=== PATIENT | male | born 1960 | race Caucasian/White ===

== ENCOUNTER 2016-12-13 15:06 | Emergency (ER) | payer OTHER ==
[~2016-12-13 15:06] MED LIST: PANTOPRAZOLE SO40 MG PO; PROBIOTIC1 EAC5
[2017-01-15] MEDS ORDERED: ACIDOPHILUS1 EAC2 PO (16:58)
[2017-01-15] MEDS ORDERED: PROTONIX PO (16:58)
== END 2016-12-13 15:10 | disposition home or self-care (01) ==
LOC: CFTX 15:06
DX: R33.9 Retention of urine, unspecified (principal); Z98.890 Other specified postprocedural states; Z87.891 Personal history of nicotine dependence; Z88.1 Allergy status to other antibiotic agents; Z88.5 Allergy status to narcotic agent
CPT/HCPCS: 51702; 99284

== ENCOUNTER 2016-12-19 08:22 | Emergency (ER) | payer OTHER ==
[2017-01-15] MEDS ORDERED: ACIDOPHILUS1 EAC2 PO (16:58)
[2017-01-15] MEDS ORDERED: PROTONIX PO (16:58)
== END 2016-12-19 08:25 | disposition home or self-care (01) ==
LOC: CED 08:22
DX: Z46.6 Encounter for fitting and adjustment of urinary device (principal); R33.8 Other retention of urine; K59.00 Constipation, unspecified; J44.9 Chronic obstructive pulmonary disease, unspecified; Z88.5 Allergy status to narcotic agent; Z88.1 Allergy status to other antibiotic agents
CPT/HCPCS: 99282

== ENCOUNTER 2016-12-20 19:21 | Emergency (ER) | payer OTHER ==
[2017-01-15] MEDS ORDERED: ACIDOPHILUS1 EAC2 PO (16:58)
[2017-01-15] MEDS ORDERED: PROTONIX PO (16:58)
== END 2016-12-20 19:25 | disposition home or self-care (01) ==
LOC: CED 19:21
DX: R43.8 Other disturbances of smell and taste (principal); Z88.5 Allergy status to narcotic agent; Z88.1 Allergy status to other antibiotic agents
CPT/HCPCS: 99282

== ENCOUNTER → 2017-01-21 | Day surgery (SDC) | payer OTHER ==
[~2017-01-21] MED LIST changes: +ACIDOPHILUS1 EAC2 PO; +PROTONIX PO
--- NOTE | ~2017-01-21 | OR ---
Unit #: [id number] #: [id number] Patient: CONSTANTINO FOY [id number] [address] [address] [id number] O MR#: [id number] NAME: CONSTANTINO FOY ROOM: Date of Procedure: 01/21/2017 Admission Date: 01/21/2017 Surgeon: Robby Najera M.D. : 1960 Attending Physician: Robby Najera M.D. Referring Physician: Robby Najera M.D. Primary Care Physician: Perez Bran Aprn OPERATIVE REPORT PROCEDURE PERFORMED Colonoscopy to cecum. INDICATIONS FOR PROCEDURE The patient with history of large polyp with high-grade dysplasia removed recently with piecemeal dissection and undergoing colonoscopy to ensure complete polypectomy. MEDICATIONS Monitored anesthesia. POSTOPERATIVE FINDINGS 1. Colonoscopy completed to cecum with good prep. 2. No remnant or recurrent polyp was seen. 3. Internal hemorrhoids. PLAN Given the history, I recommend repeat colonoscopy in 3 years. DESCRIPTION OF PROCEDURE The patient was explained of the procedure, risks, and benefits along with risks and benefits of anesthesia. He was brought to the endoscopy room. Propofol anesthesia was given. Rectal exam was done, which was normal. Colonoscope was lubricated, passed up the rectum, advanced under direct vision all way to the cecum. Cecum was identified by ileocecal valve and appendiceal orifice. Previous polypectomy site was identified. No polyps, masses, or remnant polyps were seen. I retroflexed in the rectum. Internal hemorrhoids were seen. Scope was gently pulled out. He tolerated it well. Dictated by... Joey Oconnell/rm TD: 02/06/2017 00:07 JOB #: [id number] Unit #: [id number] #: [id number] Patient: CONSTANTINO FOY OPERATIVE REPORT Page 1 of 1 X Robby Najera MD PROCEDURE OPERATIVE NOTE
== END | disposition home or self-care (01) ==
LOC: COPS 10:02
PROVIDERS: Internal Medicine
PROC: 0DJD8ZZ Inspection of Lower Intestinal Tract, Via Natural or Artificial Opening Endoscopic (ICD-10-PCS; principal; 2017-01-21 12:00)
DX: Z48.815 Encounter for surgical aftercare following surgery on the digestive system (principal); Z86.010 Personal history of colon polyps; K64.8 Other hemorrhoids; Z88.8 Allergy status to other drugs, medicaments and biological substances; K29.70 Gastritis, unspecified, without bleeding; J43.9 Emphysema, unspecified
CPT/HCPCS: J2250

== ENCOUNTER 2017-05-12 23:34 | Emergency (ER) | payer OTHER ==
--- NOTE | ~2017-05-12 | CT2 ---
[facility] A Service of [facility] RADIOLOGY TEXT RESULTS PATIENT: CONSTANTINO FOY LOCATION: [facility] : 62 UNIT #: [id number] AGE: [address]: Sae Dorado SEX: M ORDER DR: [id number] [facility] [address] [place], [place] [address] [id number] E MR#: [id number] Acc #: [id number] NAME: CONSTANTINO FOY : 1960 SEX: M STUDY DATE/TIME: 05/13/2017 1:58 UNIT: AC ROOM: STUDY DESCRIPTION: CT Abd and Pelv W Cont Attending Physician: Sae Dorado P.A.-C. Ordering Physician: Sae Dorado P.A.-C. Primary Care Physician: [facility] MEDICAL IMAGING REPORT This report is preliminary unless electronic signature is present EXAM CT abdomen and pelvis with IV contrast. DATE: 08/09/2016 HISTORY 57-year-old male complains of generalized abdominal pain with nausea since yesterday. Weakness. COMPARISON CT abdomen and pelvis 08/09/2016. PROCEDURE 5 mL axial images from lung bases through lesser trochanters after intravenous contrast administration. Enteric contrast not administered. Sagittal and coronal reformatted images were obtained. This CT exam was performed with one or more of the following radiation dose reduction techniques: automatic exposure control, adjustment of mA and/or kV according to patient size, and iterative reconstruction. FINDINGS ABDOMEN FINDINGS: Large bulla within the right middle lobe again noted. No acute basilar airspace disease is identified. Mild emphysema. The liver, gallbladder, spleen, pancreas, adrenals and kidneys are within normal limits. Limited evaluation bowel without IV contrast. No evidence of high-grade large or small bowel obstruction. No free air free fluid. Normal appendix. PELVIS FINDINGS: Urinary bladder, prostate and rectum are normal. No acute pelvic free fluid or adenopathy. [facility] A Service of [facility] / [facility] RADIOLOGY TEXT RESULTS PATIENT: CONSTANTINO FOY LOCATION: [facility] : 62 UNIT #: [id number] AGE: [address]: Sae Dorado PAC SEX: M ORDER DR: IMPRESSION 1. No acute findings. Normal appendix. 2. Large right middle lobe bulla. Mild emphysema. Dictated by... Bri Dixon M.D. THIS IS AN ELECTRONICALLY VERIFIED REPORT Bri Dixon M.D. at 05/13/2017 9:55 PM RUBA/cassy TD: 05/13/2017 05:30 JOB #: [id number] MEDICAL IMAGING REPORT Page 1 of 1 COPY
[2017-05-13 01:08] LABS: ALBUMIN SERUM 4.4 g/dL (3.5-5.0); ALKALINE PHOSPHATASE 71 U/L (32-92); ALT (SGPT) 18 U/L (10-40); AST (SGOT) 25 U/L (10-42); BILIRUBIN, DIRECT 0.2 mg/dL (0.0-0.2); BILIRUBIN,TOTAL 0.2 mg/dL (0.2-2.0); BLOOD UREA NITROGEN 16 mg/dL (9-23); CALCIUM SERUM 9.3 mg/dL (8.4-10.2); CARBON DIOXIDE 28 mmol/L (22-31); CHLORIDE 105 mmol/L (100-111); CREATININE SERUM 1.3 mg/dL (0.6-1.4); GLUCOSE FASTING 174 mg/dL (70-110); LIPASE 17 U/L (22-51); POTASSIUM 4.2 mmol/L (3.5-5.1); PROTEIN TOTAL SERUM 7.7 g/dL (6.0-8.3); SODIUM 140 mmol/L (135-145)
[2017-05-13 01:09] LABS: ALCOHOL BLOOD <5 mg/dL (0)
[2017-05-13 01:13] LABS: BASOPHIL# 0.1 X10e3 (0-0.3); BASOPHIL% 0.5 % (0-2.5); EOSINOPHIL# 0.3 X10e3 (0-0.7); EOSINOPHIL% 1.4 % (0.0-7.0); HEMATOCRIT 44.6 % (38.0-50.0); HEMOGLOBIN 14.4 gm/dL (13.0-16.0); LYMPHOCYTE# 1.6 X10e3 (1.0-3.5); LYMPHOCYTE% 7.8 % (17.0-45.0); MEAN CELL VOLUME 86.5 FL (83-96); MEAN CORPUSCULAR HGB CONC 32.3 g/dL (30-36); MEAN PLATELET VOLUME 7.9 FL (6.5-11.5); MONOCYTE# 1.7 X10e3 (0-1.0); MONOCYTE% 8.2 % (3.0-12.0); NEUTROPHIL# 16.7 X10e3 (1.5-7.1); NEUTROPHIL% 82.1 % (40-75); PLATELET COUNT 263 X10e3 (140-420); RED BLOOD COUNT 5.16 X10e (3.90-5.60); WHITE BLOOD COUNT 20.3 X10e3 (4.0-10.5)
[2017-05-13 01:14] LABS: DIFF IND YES
[2017-05-13 01:45] LABS: PLATELET ESTIMATE NORMAL (NORMAL); RBC NORMAL YES
[2017-05-13 04:38] LABS: URINE SOURCE CLEAN CATCH
[2017-05-13 04:45] LABS: URINE APPEARANCE CLEAR; URINE BILIRUBIN NEG (NEG); URINE BLOOD NEG (NEG); URINE COLOR YELLOW; URINE GLUCOSE NEG (NEG); URINE KETONE NEG (NEG); URINE LEUKOCYTE ESTERASE NEG (NEG); URINE NITRATE NEG (NEG); URINE PH 7.5 (5-8); URINE PROTEIN NEG (NEG); URINE SPECIFIC GRAVITY 1.046 (1.003-1.035); URINE UROBILINOGEN 0.2 MG/DL (NEG)
[2017-05-13 04:47] LABS: CULTURE INDICATED? NO
== END 2017-05-13 04:36 | disposition home or self-care (01) ==
LOC: CED 23:34
PROVIDERS: Student in an Organized Health Care Education/Training Program
DX: R10.84 Generalized abdominal pain (principal); R11.2 Nausea with vomiting, unspecified; F17.210 Nicotine dependence, cigarettes, uncomplicated; Z79.899 Other long term (current) drug therapy; Z88.5 Allergy status to narcotic agent; Z88.1 Allergy status to other antibiotic agents
CPT/HCPCS: 36415; 74177; 80048; 80076; 81003; 83690; 85025; 96361; 96374; 96375; 99284; C9113; G0480; J2405; J2550; Q9967